=== PATIENT | female | born 1975 | race Two or more races ===

== ENCOUNTER → 2018-04-05 | Outpatient (CLI) | payer BC | END | disposition home or self-care (01) | LOC: LAB 17:05 | PROVIDERS: ATTEND Internal Medicine | DX: Z75.3 Unavailability and inaccessibility of health-care facilities (principal) ==

== ENCOUNTER 2018-04-06 16:20 | Outpatient (CLI) | payer BC ==
[2018-04-07 12:20] LABS: *MUMPS AB (IGG) 83.7 AU/mL (Immune >10.9); *RUBEOLA AB (IGG) >300.0 AU/mL (Immune >29.9); VARICELLA ZOSTER IgG 798 index (Immune >165)
== END 2018-04-06 23:59 | disposition home or self-care (01) ==
LOC: RAD 16:20
PROVIDERS: ATTEND Internal Medicine
DX: Z00.00 Encounter for general adult medical examination without abnormal findings (principal)
CPT/HCPCS: 36415; 86317; 86735; 86762; 86765; 86787

== ENCOUNTER 2018-04-07 15:53 | Outpatient (CLI) | payer BC | END 2018-04-07 23:59 | disposition home or self-care (01) | LOC: RAD 15:53 | PROVIDERS: ATTEND Internal Medicine | DX: Z00.00 Encounter for general adult medical examination without abnormal findings (principal); R91.8 Other nonspecific abnormal finding of lung field | CPT/HCPCS: 71046 ==

== ENCOUNTER 2019-11-23 12:06 | Outpatient (CLI) | payer BC ==
[2019-11-23 18:18] LABS: BASOPHILS # (AUTO) 0.1 /CMM (0.0-0.2); BASOPHILS % (AUTO) 0.7 % (0.0-2.0); EOSINOPHILS % (AUTO) 2.3 % (0.0-6.0); HEMATOCRIT 38 % (33-45); HEMOGLOBIN 12.5 g/dL (11.5-14.8); LYMPHOCYTES # (AUTO) 2.2 /CMM (0.8-4.8); MEAN CORPUSCULAR HGB CONC 33 g/dl (31.0-36.0); MEAN CORPUSCULAR VOLUME 91 fL (82-100); MONOCYTES # (AUTO) 0.5 /CMM (0.1-1.30); MONOCYTES % (AUTO) 6.5 % (2.0-12.0); NEUTROPHILS # (AUTO) 5.2 /CMM (1.8-8.9); NEUTROPHILS % (AUTO) 63.5 % (43.0-81.0); PLATELET COUNT (AUTO) 235 /CMM (150-450); RED BLOOD CELL COUNT(AUTO) 4.19 MIL/uL (4.0-5.2); WHITE BLOOD COUNT (AUTO) 8.2 K/uL (4.3-11.0)
== END 2019-11-23 23:59 | disposition home or self-care (01) ==
LOC: LAB 12:06
PROVIDERS: ATTEND Family Medicine
DX: D50.9 Iron deficiency anemia, unspecified (principal); R53.83 Other fatigue
CPT/HCPCS: 36415; 85025-TC

== ENCOUNTER 2020-03-21 12:14 | Emergency (ER) | payer BC, OTHER ==
[~2020-03-21] VITALS: Ht 162.6 cm; Wt 66.7 kg
[2020-03-21 12:24] VITALS: BP 135/82
--- NOTE | 2020-03-21 13:27 | NUR ---
swabbed w/ covid19 pcr test instead of rapid per dr amaro verbal order.
== END 2020-03-21 13:28 | disposition home or self-care (01) ==
LOC: ER 12:23
DX: Z20.828 Contact with and (suspected) exposure to other viral communicable diseases (principal)
CPT/HCPCS: 99283; C9803; U0003

== ENCOUNTER 2020-09-26 08:38 | Outpatient (CLI) | payer BC ==
[2020-09-26 09:53] LABS: BASOPHILS % (AUTO) 0.6 % (0.0-2.0); EOSINOPHILS % (AUTO) 2.4 % (0.0-6.0); HEMATOCRIT 34 % (33-45); LYMPHOCYTES # (AUTO) 1.3 /CMM (0.8-4.8); LYMPHOCYTES % (AUTO) 22.7 % (20.0-44.0); MEAN CORPUSCULAR HGB CONC 33 g/dl (31.0-36.0); MEAN CORPUSCULAR VOLUME 85 fL (82-100); MONOCYTES # (AUTO) 0.4 /CMM (0.1-1.30); MONOCYTES % (AUTO) 6.9 % (2.0-12.0); NEUTROPHILS # (AUTO) 3.8 /CMM (1.8-8.9); NEUTROPHILS % (AUTO) 67.4 % (43.0-81.0); PLATELET COUNT (AUTO) 286 /CMM (150-450); RED BLOOD CELL COUNT(AUTO) 3.97 MIL/uL (4.0-5.2); WHITE BLOOD COUNT (AUTO) 5.6 K/uL (4.3-11.0)
[2020-09-26 10:22] LABS: ALBUMIN 3.7 g/dL (3.4-5.0); BILIRUBIN,TOTAL 0.4 mg/dL (0.2-1.0); CALCIUM, SERUM 8.2 mg/dL (8.5-10.1); CREATININE 0.6 mg/dL (0.6-1.3); POTASSIUM 3.6 mmol/L (3.5-5.1); TOTAL PROTEIN, SERUM 7.4 g/dL (6.4-8.2)
[2020-09-26 10:32] LABS: THYROID STIMULATING HORMONE 4.139 uIU/mL (0.358-3.74)
== END 2020-09-26 23:59 | disposition home or self-care (01) ==
LOC: LAB 08:38
PROVIDERS: ATTEND Family Medicine
DX: D64.9 Anemia, unspecified (principal); E55.9 Vitamin D deficiency, unspecified; R53.83 Other fatigue
CPT/HCPCS: 36415; 80053-TC; 80061-TC; 82306; 84439-TC; 84443-TC; 85025-TC

== ENCOUNTER 2020-11-25 12:22 | Outpatient (CLI) | payer BC ==
[2020-11-25 13:18] LABS: BASOPHILS # (AUTO) 0.1 K/uL (0.0-0.2); BASOPHILS % (AUTO) 1.1 % (0.0-2.0); EOSINOPHILS % (AUTO) 1.4 % (0.0-6.0); HEMATOCRIT 31 % (33-45); HEMOGLOBIN 9.8 g/dL (11.5-14.8); LYMPHOCYTES # (AUTO) 1.3 K/uL (0.8-4.8); LYMPHOCYTES % (AUTO) 25.5 % (20.0-44.0); MEAN CORPUSCULAR HGB CONC 32 g/dl (31.0-36.0); MEAN CORPUSCULAR VOLUME 82 fL (82-100); MONOCYTES # (AUTO) 0.3 K/uL (0.1-1.30); MONOCYTES % (AUTO) 6.7 % (2.0-12.0); NEUTROPHILS # (AUTO) 3.2 K/uL (1.8-8.9); NEUTROPHILS % (AUTO) 65.3 % (43.0-81.0); PLATELET COUNT (AUTO) 297 K/uL (150-450); RED BLOOD CELL COUNT(AUTO) 3.71 MIL/uL (4.0-5.2)
[2020-11-25 14:30] LABS: ALBUMIN 3.8 g/dL (3.4-5.0); BILIRUBIN,TOTAL 0.3 mg/dL (0.2-1.0); CALCIUM, SERUM 8.3 mg/dL (8.5-10.1); CREATININE 0.7 mg/dL (0.6-1.3); POTASSIUM 3.7 mmol/L (3.5-5.1); TOTAL PROTEIN, SERUM 7.6 g/dL (6.4-8.2)
== END 2020-11-25 23:59 | disposition home or self-care (01) ==
LOC: LAB 12:22
PROVIDERS: ATTEND Family Medicine
DX: D64.9 Anemia, unspecified (principal); R73.9 Hyperglycemia, unspecified
CPT/HCPCS: 36415; 80053-TC; 82607-TC; 82728-TC; 83540-TC; 83550-TC; 85025-TC

== ENCOUNTER 2021-01-28 12:04 | Outpatient (CLI) | payer BC ==
[2021-01-28 16:22] LABS: MAGNESIUM 2.1 mg/dL (1.8-2.4)
[2021-01-29 09:07] LABS: *C PEPTIDE 9.2 ng/mL (1.1-4.4); *INSULIN 82.4 uIU/mL (2.6-24.9); FOLLICLE STIMULATION HORMONE 3.1 mIU/mL (.); LUTEINIZING HORMONE 2.4 mIU/mL (.); PROGESTERONE 9.9 ng/mL (.); T3, FREE 2.5 pg/mL (2.0-4.4)
== END 2021-01-28 23:59 | disposition home or self-care (01) ==
LOC: LAB 12:04
PROVIDERS: ATTEND Otolaryngology Plastic Surgery within the Head & Neck
DX: D64.9 Anemia, unspecified (principal); Z00.00 Encounter for general adult medical examination without abnormal findings
CPT/HCPCS: 36415; 80061-TC; 82306; 82310-TC; 82533; 82627; 82670; 83001; 83002; 83090; 83735-TC; 84144; 84402-TC; 84439-TC; 84481; 86376

== ENCOUNTER 2021-02-11 14:32 | Outpatient (CLI) | payer BC ==
[2021-02-13 12:06] LABS: BASOPHILS # (AUTO) 0.1 K/uL (0.0-0.2); EOSINOPHILS % (AUTO) 3.4 % (0.0-6.0); HEMATOCRIT 32 % (33-45); HEMOGLOBIN 10.1 g/dL (11.5-14.8); LYMPHOCYTES % (AUTO) 19.2 % (20.0-44.0); MEAN CORPUSCULAR HGB CONC 31 g/dl (31.0-36.0); MEAN CORPUSCULAR VOLUME 79 fL (82-100); MONOCYTES # (AUTO) 0.5 K/uL (0.1-1.30); MONOCYTES % (AUTO) 10.6 % (2.0-12.0); NEUTROPHILS # (AUTO) 3.3 K/uL (1.8-8.9); NEUTROPHILS % (AUTO) 65.8 % (43.0-81.0); PLATELET COUNT (AUTO) 287 K/uL (150-450); RED BLOOD CELL COUNT(AUTO) 4.12 MIL/uL (4.0-5.2)
[2021-02-13 13:01] LABS: THYROID STIMULATING HORMONE 1.973 uIU/mL (0.358-3.74)
== END 2021-02-11 23:59 | disposition home or self-care (01) ==
LOC: US 14:32
PROVIDERS: ATTEND Family Medicine
DX: E06.3 Autoimmune thyroiditis (principal)
CPT/HCPCS: 36415; 76536-TC; 82533; 82607-TC; 82728-TC; 83540-TC; 84443-TC; 85025-TC

== ENCOUNTER 2021-07-09 14:30 | Outpatient (CLI) | payer BC ==
[2021-07-09 15:43] LABS: BASOPHILS % (AUTO) 0.8 % (0.0-2.0); EOSINOPHILS % (AUTO) 2.5 % (0.0-6.0); HEMATOCRIT 31 % (33-45); HEMOGLOBIN 9.6 g/dL (11.5-14.8); LYMPHOCYTES # (AUTO) 1.5 K/uL (0.8-4.8); LYMPHOCYTES % (AUTO) 25.8 % (20.0-44.0); MEAN CORPUSCULAR HGB CONC 31 g/dl (31.0-36.0); MEAN CORPUSCULAR VOLUME 75 fL (82-100); MONOCYTES # (AUTO) 0.4 K/uL (0.1-1.30); MONOCYTES % (AUTO) 6.1 % (2.0-12.0); NEUTROPHILS # (AUTO) 3.8 K/uL (1.8-8.9); NEUTROPHILS % (AUTO) 64.8 % (43.0-81.0); PLATELET COUNT (AUTO) 304 K/uL (150-450); RED BLOOD CELL COUNT(AUTO) 4.12 MIL/uL (4.0-5.2); WHITE BLOOD COUNT (AUTO) 5.9 K/uL (4.3-11.0)
[2021-07-09 16:37] LABS: THYROID STIMULATING HORMONE 2.633 uIU/mL (0.358-3.74)
[2021-07-09 16:55] LABS: ALBUMIN 4.2 g/dL (3.4-5.0); BILIRUBIN,TOTAL 0.2 mg/dL (0.2-1.0); CALCIUM, SERUM 8.9 mg/dL (8.5-10.1); CREATININE 0.6 mg/dL (0.6-1.3); POTASSIUM 3.4 mmol/L (3.5-5.1); TOTAL PROTEIN, SERUM 8.2 g/dL (6.4-8.2)
[2021-07-10 05:07] LABS: T3, FREE 2.7 pg/mL (2.0-4.4)
== END 2021-07-09 23:59 | disposition home or self-care (01) ==
LOC: LAB 14:30
PROVIDERS: ATTEND Family Medicine
DX: E78.2 Mixed hyperlipidemia (principal); E55.9 Vitamin D deficiency, unspecified; D50.9 Iron deficiency anemia, unspecified; E06.3 Autoimmune thyroiditis
CPT/HCPCS: 36415; 80053-TC; 80061-TC; 82306; 82607-TC; 82728-TC; 83540-TC; 84439-TC; 84443-TC; 84481; 85025-TC; 86376; 86800

== ENCOUNTER 2021-07-10 11:19 | Outpatient (CLI) | payer BC | END 2021-07-10 23:59 | disposition home or self-care (01) | LOC: US 11:19 | PROVIDERS: ATTEND Family Medicine | DX: E04.2 Nontoxic multinodular goiter (principal); E06.3 Autoimmune thyroiditis | CPT/HCPCS: 76536-TC ==